=== PATIENT | female | born 2000 | race Caucasian/White ===

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

== ENCOUNTER 2021-06-10 10:48 | Outpatient (CLI) | payer BC ==
[2021-06-10 11:26] VITALS: BP 121/72; PULSE 76; RESP 18; TEMP 97.6
--- NOTE | 2021-06-19 13:22 | P.MSEPDOC ---
Presenting Problems - Arrival Data Date of Arrival on Unit: 06/10/21 Time of Arrival on Unit: 10:48 Mode of Transport: Ambulatory - Complaint OB-Reason for Admission/Chief Complaint: Other Comment: dizziness/lightheadedness and occassional headache x2 days Medical History - Information : 1 Para: 0 Term: 0 : 0 Abortions: Spontaneous or Elective: 0 Number of Living Children: 0 - Gestational Age Gestational Age by NICHO (wks/days): 25 Weeks and 2 Days Review of Systems - Review of Systems Constitutional: No problems Breast: No problems ENT: No problems Cardiovascular: No problems Respiratory: No problems Gastrointestinal: No problems Genitourinary: No problems Musculoskeletal: No problems Neurological: Dizziness Skin: No problems, Rash Comment: rash on legs/thighs that pt is taking prednisone for. Vital Signs - Temperature Temperature: 97.6 F Temperature Source: Temporal Artery Scan - Pulse Right Pulse Oximetery Pulse Rate: 76 Pulse Assessment Method: Pulse Oximetry - Respirations Respiratory Rate: 18 Oxygen Delivery Method: Room Air O2 Sat by Pulse Oximetry: 98 - Blood Pressure Right Arm Blood Pressure: 121/72 Blood Pressure Mean: 88 Blood Pressure Source: Automatic Cuff Medical Screen Scoring - Assessment - Baby A Baseline FHR: 150 Heart Rate - NICHD Category: Category I (Normal) Physician Notification - Physician Notified Physician Notified Date: 06/10/21 Physician Notified Time: 11:15 Physician: Jonh Arias Order Received: Yes (discharge with instructions to f/u next week in office if sx continue) Maternal Triage Index - Maternal Triage Index Presenting for scheduled procedure w/no complaint: No - Stat/Priority 1 Stat Priority 1: No - Urgent/Priority 2 Urgent Priority 2: No - Prompt/Priority 3 Prompt Priority 3: No - Non-Urgent/Priority 4 Non-Urgent Priority 4: Yes Criteria Met for Priority 4: dizziness/lightheadedness/h/a x 2 days Disposition - Disposition OB Disposition: Discharge to home Discharge Date: 06/10/21 Discharge Time: 11:20 I agree with the RN Medical Screening Exam: Yes Case reviewed; plan agreed upon as documented in EMR&OBIX.: Yes Diagnosis: RELATED CONDITIONS, UNSPECIFIED, SECOND TRIMESTER
== END 2021-06-10 11:20 | disposition home or self-care (01) ==
LOC: FBPOP 10:48
PROVIDERS: ATTEND Obstetrics & Gynecology Obstetrics
DX: O26.892 Other specified pregnancy related conditions, second trimester (principal); R42 Dizziness and giddiness; R51.9 Headache, unspecified; Z3A.25 25 weeks gestation of pregnancy; Z88.1 Allergy status to other antibiotic agents
CPT/HCPCS: 99213

== ENCOUNTER 2021-07-01 15:15 | Outpatient (CLI) | payer BC ==
[2021-07-01 21:46] VITALS: BP 114/71; PULSE 80; RESP 16; TEMP 97.5
--- NOTE | 2021-07-02 11:03 | P.MSEPDOC ---
Presenting Problems - Arrival Data Date of Arrival on Unit: 07/01/21 Time of Arrival on Unit: 15:20 Mode of Transport: Ambulatory - Complaint OB-Reason for Admission/Chief Complaint: Decreased Movement, NST Comment: doing kick counts didnt feel baby moving Medical History - Information : 1 Para: 0 Term: 0 : 0 Abortions: Spontaneous or Elective: 0 Number of Living Children: 0 - Gestational Age Gestational Age by NICHO (wks/days): 28 Weeks and 2 Days Review of Systems - Review of Systems Constitutional: No problems Breast: No problems ENT: No problems Cardiovascular: No problems Respiratory: No problems Gastrointestinal: No problems Genitourinary: No problems Musculoskeletal: No problems Neurological: No problems Skin: No problems Vital Signs - Temperature Temperature: 97.5 F Temperature Source: Temporal Artery Scan - Pulse Right Radial Pulse Rate: 80 Pulse Assessment Method: Automatic Cuff - Respirations Respiratory Rate: 16 Oxygen Delivery Method: Room Air - Blood Pressure Right Arm Blood Pressure: 114/71 Blood Pressure Mean: 85 Blood Pressure Source: Automatic Cuff Medical Screen Scoring - Cervical Exam Dilation (cm): 0 - Assessment - Baby A Baseline FHR: 145 Heart Rate - NICHD Category: Category I (Normal) NST: Reactive Physician Notification - Physician Notified Physician Notified Date: 07/01/21 Physician Notified Time: 16:00 Physician: Jonh Arias Order Received: Yes (nst.) Maternal Triage Index - Non-Urgent/Priority 4 Non-Urgent Priority 4: Yes Criteria Met for Priority 4: not feeling baby move after 2 hour kick count Disposition - Disposition OB Disposition: Discharge to home, Written follow up instructions reviewed Discharge Date: 07/01/21 Discharge Time: 16:30 I agree with the RN Medical Screening Exam: Yes Physician's MSE Comment: I have neither seen nor examined the patient. Case reviewed; plan agreed upon as documented in EMR&OBIX.: Yes Diagnosis: RELATED CONDITIONS, UNSPECIFIED, THIRD TRIMESTER
== END 2021-07-01 16:15 | disposition home or self-care (01) ==
LOC: FBPOP 15:15
PROVIDERS: ATTEND Obstetrics & Gynecology
DX: O36.8130 Decreased fetal movements, third trimester, not applicable or unspecified (principal); Z3A.28 28 weeks gestation of pregnancy
CPT/HCPCS: 59025; 99213

== ENCOUNTER 2021-08-16 18:00 | Outpatient (CLI) | payer BC ==
[2021-08-16 19:07] LABS: Appearance,Urine Cloudy (Clear); Bacteria,Urine Rare /hpf; Bilirubin,Urine Negative (Negative); Blood,Urine Negative (Negative); Calcium Oxalate Crystals,Urine Occasional /hpf; Color,Urine Yellow; Glucose,Urine (UA) Negative (Negative); Hyaline Casts,Urine 1 /lpf (0-2); Ketones,Urine Trace (Negative); Leukocyte Esterase,Urine Trace (Negative); Mucus,Urine Moderate /hpf; Nitrite,Urine Negative (Negative); Protein,Urine Trace (Negative); RBC,Urine 1 /hpf (0-5); Specific Gravity,Urine 1.023 (1.001-1.035); Squamous Epithelial Cell,Urine 7 /hpf (0-4); Urobilinogen,Urine <2.0 mg/dL (<2.0); WBC,Urine 4 /hpf (0-5)
[2021-08-17 00:57] VITALS: BP 128/84; PULSE 88; RESP 16; TEMP 97.3
--- NOTE | 2021-09-19 17:02 | P.MSEPDOC ---
Presenting Problems - Arrival Data Date of Arrival on Unit: 08/17/21 Time of Arrival on Unit: 18:00 Mode of Transport: Ambulatory - Complaint OB-Reason for Admission/Chief Complaint: Pain Comment: Patient states she has back pain 4/10. Medical History - Information : 2 Para: 0 Term: 0 : 0 Abortions: Spontaneous or Elective: 1 Number of Living Children: 0 - Gestational Age Gestational Age by NICHO (wks/days): 33 Weeks and 5 Days - History Comment: Patient denies any complications with this . Review of Systems - Review of Systems Constitutional: No problems Breast: No problems ENT: No problems Cardiovascular: No problems Respiratory: No problems Gastrointestinal: No problems Genitourinary: No problems Musculoskeletal: No problems Neurological: No problems Skin: No problems Vital Signs - Temperature Temperature: 97.3 F Temperature Source: Temporal Artery Scan - Pulse Pulse Oximetery Pulse Rate: 88 Pulse Assessment Method: Automatic Cuff - Respirations Respiratory Rate: 16 Oxygen Delivery Method: Room Air O2 Sat by Pulse Oximetry: 99 - Blood Pressure Right Arm Blood Pressure: 128/84 Blood Pressure Mean: 98 Blood Pressure Source: Automatic Cuff Medical Screen Scoring - Cervical Exam Dilation (cm): 1 Effacement (%): 0 Membranes: Intact - Assessment - Baby A Baseline FHR: 130 Heart Rate - NICHD Category: Category I (Normal) NST: Reactive Physician Notification - Physician Notified Physician Notified Date: 08/16/21 Physician Notified Time: 19:40 Physician: Jonh Arias Order Received: Yes - Notification Comment Comment: Spoke with Dr. Arias via telephone, patient is to follow up with next appointment and to stay hydrated. Maternal Triage Index - Non-Urgent/Priority 4 Non-Urgent Priority 4: Yes Criteria Met for Priority 4: Patient states she is having lower back pain a 4/10 and pelvic presure. Disposition - Disposition OB Disposition: Physician follow up in office, Discharge to home I agree with the RN Medical Screening Exam: Yes Physician's MSE Comment: I have neither seen nor examined the patient. Case reviewed; plan agreed upon as documented in EMR&OBIX.: Yes Diagnosis: RELATED CONDITIONS, UNSPECIFIED, THIRD TRIMESTER
== END 2021-08-16 19:40 | disposition home or self-care (01) ==
LOC: FBPOP 18:00
PROVIDERS: ATTEND Obstetrics & Gynecology
DX: O26.893 Other specified pregnancy related conditions, third trimester (principal); M54.9 Dorsalgia, unspecified; Z3A.33 33 weeks gestation of pregnancy; Z88.1 Allergy status to other antibiotic agents
CPT/HCPCS: 59025; 81001; 82731; 99213

== ENCOUNTER 2021-08-30 15:52 | Inpatient (IN) | payer BC, OTHER ==
[2021-08-30 17:11] LABS: Basophils % (A) 0 %; Eosinophils # (A) 0.2 k/uL (0-0.7); Eosinophils % (A) 2 %; HGB 13.9 gm/dL (11.4-16.0); Lymphocytes # (A) 2.1 k/uL (1.0-4.8); Lymphocytes % (A) 21 %; MCH 32.7 pg (25.0-35.0); MCHC 34.8 g/dL (31.0-37.0); Mean Platelet Volume 9.4; Monocytes # (A) 0.3 k/uL (0-1.0); Monocytes % (A) 3 %; Neutrophils # (A) 7.3 k/uL (1.3-7.7); Neutrophils % (A) 73 %; Platelet Count 181 k/uL (150-450); Poikilocytosis Slight; RBC 4.26 m/uL (3.80-5.40)
[2021-08-30] MEDS ORDERED: LABETALOL 100 MG TAB PO ONE (17:12)
[2021-08-30 17:21] LABS: ALT 13 U/L (4-34); AST 33 U/L (14-36); African American GFR (CKD) >90 (>60 ml/min/1.73 sqM); Blood Urea Nitrogen 7 mg/dL (7-17); LDH 630 U/L (313-618); Non-African American GFR(CKD) >90 (>60 ml/min/1.73 sqM); Uric Acid 5.1 mg/dL (3.7-7.4)
[2021-08-30 17:24] LABS: Appearance,Urine Cloudy (Clear); Bacteria,Urine Rare /hpf; Bilirubin,Urine Negative (Negative); Blood,Urine Negative (Negative); Color,Urine Yellow; Glucose,Urine (UA) Negative (Negative); Hyaline Casts,Urine 1 /lpf (0-2); Ketones,Urine Negative (Negative); Leukocyte Esterase,Urine Large (Negative); Nitrite,Urine Negative (Negative); PH, Urine 6.5 (5.0-8.0); Protein,Urine Negative (Negative); RBC,Urine 2 /hpf (0-5); Specific Gravity,Urine 1.011 (1.001-1.035); Squamous Epithelial Cell,Urine 10 /hpf (0-4); Urobilinogen,Urine <2.0 mg/dL (<2.0); WBC,Urine 8 /hpf (0-5)
[2021-08-30] MEDS: BETAMET ACET-BETAMETH SOD PHOS 6 MG/ML MDV IM SCH (17:24)
[2021-08-30 17:37] LABS: Creatinine,Urine Random 89.8 mg/dL; Protein/Creatinine Ratio,Urine 0.167
[2021-08-30] MEDS ORDERED: hydrALAZINE HCL 20 MG/ML 1 ML VIAL IVP STA ×2 (18:55→19:00)
[2021-08-30] MEDS ORDERED: DINOPROSTONE 10 MG INSERT.ER VAGINAL ONE (19:15)
[2021-08-30] MEDS: LACTATED RINGERS 1,000 ML IV SCH (19:27)
[2021-08-30] MEDS ORDERED: hydrALAZINE HCL 20 MG/ML 1 ML VIAL IVP PRN (21:03)
[2021-08-31] MEDS ORDERED: BETAMET ACET-BETAMETH SOD PHOS 6 MG/ML MDV IM SCH (05:24)
[2021-08-31] MEDS ORDERED: OXYTOCIN 30 UNITS/500 ML NS 30 UNIT in SALINE 1 500ML.BAG IV SCH ×2 (05:30→13:45)
[2021-08-31] MEDS ORDERED: OXYTOCIN 10 UNIT/ML 1 ML VIAL IM PRN (05:30)
[2021-08-31] MEDS ORDERED: CARBOPROST TROMETHAMINE 250 MCG/ML 1 ML AMP IM PRN (05:30)
[2021-08-31] MEDS ORDERED: LIDOCAINE 0.5% (PF) 5 MG/ML (50 ML SDV) SQ PRN (05:30)
[2021-08-31] MEDS ORDERED: METHYLERGONOVINE 0.2 MG/ML 1 ML AMP IM PRN (05:30)
[2021-08-31] MEDS ORDERED: TERBUTALINE 1 MG/ML VIAL SQ PRN (05:30)
[2021-08-31] MEDS ORDERED: BUTORPHANOL 1 MG/ML 1 ML VIAL IV PRN (05:32)
[2021-08-31 06:31] LABS: Basophils % (A) 0 %; Eosinophils % (A) 0 %; HCT 36.2 % (34.0-46.0); HGB 12.7 gm/dL (11.4-16.0); Lymphocytes # (A) 0.8 k/uL (1.0-4.8); Lymphocytes % (A) 9 %; MCH 33.1 pg (25.0-35.0); MCV 94.6 fL (80.0-100.0); Mean Platelet Volume 9.3; Monocytes # (A) 0.1 k/uL (0-1.0); Monocytes % (A) 2 %; Neutrophils # (A) 7.9 k/uL (1.3-7.7); Neutrophils % (A) 89 %; Platelet Count 167 k/uL (150-450); Poikilocytosis Slight; RBC 3.82 m/uL (3.80-5.40); RDW 13.1 % (11.5-15.5); WBC 8.9 k/uL (3.8-10.6)
[2021-08-31 06:35] LABS: ALT 13 U/L (4-34); AST 21 U/L (14-36); African American GFR (CKD) >90 (>60 ml/min/1.73 sqM); Blood Urea Nitrogen 5 mg/dL (7-17); LDH 434 U/L (313-618); Non-African American GFR(CKD) >90 (>60 ml/min/1.73 sqM); Uric Acid 6.1 mg/dL (3.7-7.4)
[2021-08-31 07:27] LABS: Appearance,Urine Clear (Clear); Bilirubin,Urine Negative (Negative); Blood,Urine Negative (Negative); Color,Urine Light Yellow; Glucose,Urine (UA) Negative (Negative); Ketones,Urine 3+ (Negative); Leukocyte Esterase,Urine Negative (Negative); Nitrite,Urine Negative (Negative); Protein,Urine Negative (Negative); Specific Gravity,Urine 1.009 (1.001-1.035); Urobilinogen,Urine <2.0 mg/dL (<2.0)
[2021-08-31 07:45] LABS: Creatinine,Urine Random 47.2 mg/dL; Protein/Creatinine Ratio,Urine 0.212
[2021-08-31] MEDS: LACTATED RINGERS 1,000 ML IV SCH ×3 (08:00→10:54)
[2021-08-31] MEDS ORDERED: ROPIVACAINE 100 MG, fentaNYL (PF). 200 MCG in SODIUM CHLORIDE 0.9% 76 ML EPIDURAL ONE (10:35)
[2021-08-31] MEDS: PRENATAL VIT-IRON-FOLIC ACID 1 EACH CAP PO SCH (10:53)
[2021-08-31] MEDS ORDERED: BENZOCAINE/MENTHOL SPRAY 1 GM/SPRAY AEROSOL TOPICAL PRN (13:39)
[2021-08-31] MEDS ORDERED: HYDROCORTISONE 2.5% RECTAL CREAM 30 GM TUBE RECTAL PRN (13:39)
[2021-08-31] MEDS ORDERED: diphenhydrAMINE 25 MG CAP PO PRN (13:39)
[2021-08-31] MEDS ORDERED: ACETAMINOPHEN TAB 325 MG TAB PO PRN (13:39)
[2021-08-31] MEDS ORDERED: SIMETHICONE 80 MG CHEWABLE PO PRN (13:39)
[2021-08-31] MEDS ORDERED: diphenhydrAMINE 50 MG/ML 1 ML VIAL IVP PRN ×2 (13:39)
[2021-08-31] MEDS ORDERED: LANOLIN CREAM 5 GM TUBE TOPICAL PRN (13:39)
[2021-08-31] MEDS ORDERED: ZOLPIDEM 5 MG TAB PO PRN (13:39)
[2021-08-31] MEDS ORDERED: diphenhydrAMINE 50 MG CAP PO PRN (13:39)
--- NOTE | 2021-08-31 13:39 | P.PROBDLV ---
Vaginal Delivery Note - . Vaginal Delivery Note: This is a 21-year-old 2 para 0010 at 37 and 0/7 weeks that presents to labor and delivery with complaints of not feeling well, for full details on this patient please see the dictated history and physical. Patient was admitted secondary to gestational hypertension last evening and a Cervidil was placed for induction of labor. Patient did well overnight. Patient did receive hydralazine 1 for elevated blood pressures continued blood pressures 140s over 90s overnight and this morning. Cervidil was removed and Pitocin augmentation of labor was begun. Patient underwent amniotomy and clear fluid was noted. Patient quickly became uncomfortable and requested epidural placement. Epidural was placed without difficulty by the anesthesia department. Patient made progress to the morning eventually becoming complete and began pushing. Patient was placed in a modified lithotomy position with excellent maternal effort patient did bring the down to a , the anterior/posterior shoulder was delivered without difficulty, loose nuchal cord was appreciated and delivered through. The was then placed on the maternal abdomen, after a two-minute delayed the umbilical cord was doubly clamped and cut. The placenta was then delivered spontaneously intact with a three-vessel cord being noted. The uterus is noted be firm and below the umbilicus after delivery of the placenta. On inspection the patient's vaginal vault a small first-degree left hymenal tear was appreciated a [id number] suture of 3-0 Vicryl was used to obtain hemostasis. Estimated blood loss 100 mL. Patient and tolerated delivery well and are resting comfortably.
--- NOTE | 2021-08-31 13:41 | P.HPOB ---
History of Present Illness H&P Date: 08/30/21 Chief Complaint: IUP at 36-6/7 weeks, gestational hypertension This is a 21-year-old 2 para 0010 at 36-6/7 weeks that presents to labor and delivery with complaints of contractions. On initial evaluation elevated blood pressures were noted. 140s to 160s over 90s to 100s. Preeclampsia labs were obtained and normal in nature. Protein creatinine ratio was noted be 0.1. Patient does state she has a slight headache. She states she has had minimal to eat or drink today. She has just felt "off". Patient notes good movement, no loss of fluid or vaginal bleed. Patient has been receiving routine care with myself which is been essentially uncomplicated, no elevated blood pressures were noted just far in . Patient did have a positive MRSA boil on her thigh treated with antibiotics this . Review of Systems Constitutional: Reports fatigue, Denies chills, Denies fever Ears, nose, mouth and throat: Reports headache Cardiovascular: Denies leg edema Respiratory: Denies dyspnea Gastrointestinal: Denies constipation, Denies diarrhea, Denies nausea, Denies vomiting Genitourinary: Reports Past Medical History Past Medical History: No Reported History History of Any Multi-Drug Resistant Organisms: MRSA Date of last positivie culture/infection: 06/29/21 MDRO Source:: MRSA right GROIN, finished abx a couple months ago Past Surgical History: No Surgical Hx Reported Additional Past Surgical History / Comment(s): Tubes in her ears. Past Anesthesia/Blood Transfusion Reactions: No Reported Reaction Past Psychological History: Anxiety Smoking Status: Never smoker Past Alcohol Use History: None Reported Past Drug Use History: None Reported - Past Family History Mother Family Medical History: No Reported History Medications and Allergies Home Medications Medication Instructions Recorded Confirmed Type Pnv,Calcium 72/Iron/Folic Acid 1 tab PO DAILY 07/01/21 08/30/21 History [ Plus Tablet] Allergies Allergy/AdvReac Type Severity Reaction Status Date / Time amoxicillin Allergy Rash/Hives Verified 08/30/21 16:27 Exam Osteopathic Statement: *. No significant issues noted on an osteopathic structural exam other than those noted in the History and Physical/Consult. Vital Signs Temp Pulse Resp BP 08/30/21 18:04 98.1 F 74 16 146/91 08/30/21 18:00 97.7 F 91 16 161/107 08/30/21 17:01 85 16 156/102 08/30/21 16:51 85 16 155/101 08/30/21 16:42 96 16 162/106 08/30/21 16:31 90 16 152/98 08/30/21 16:22 100 16 142/97 08/30/21 16:11 74 16 160/99 08/30/21 15:58 98.1 F 74 16 146/91 Intake and Output 08/30/21 08/30/21 08/30/21 06:59 14:59 22:59 Other: Weight 73.482 kg Targeted physical exam is performed in general this a well-nourished well- developed female in no acute distress, breathing is noted to be nonlabored, heart has a regular rate and rhythm, abdomen is gravid and nontender, heart tones are category 1, she is amanda irregularly, on cervical exam she is 1-2/60/-3 station, posterior and soft. Results Result Diagrams: 08/30/21 17:00 08/30/21 17:00 Abnormal Lab Results - Last 24 Hours (Table) 08/30/21 08/30/21 Range/Units 17:00 17:00 Lactate Dehydrogenase 630 H (313-618) U/L Urine Appearance Cloudy H (Clear) Ur Leukocyte Esterase Large H (Negative) Urine WBC 8 H (0-5) /hpf Ur Squamous Epith Cells 10 H (0-4) /hpf Urine Bacteria Rare H (None) /hpf Assessment and Plan (1) 36 to 37 weeks gestation of Current Visit: Yes Status: Acute Code(s): OVI2980 - SNOMED Code(s): 760152276 (2) Gestational HTN Current Visit: Yes Status: Acute Code(s): O13.9 - GESTATIONAL HTN W/O SIGNIFICANT PROTEINURIA, UNSP TRIMESTER SNOMED Code(s): 99615251 Plan: 21-year-old 2 para 0010 at 36-6/7 weeks that presents with elevated blood pressure, negative preeclampsia labs and urine protein creatinine ratio. Blood pressures 140s to 170s over 90s to 100. No change in blood pressures n oted after 100 mg of labetalol was given by mouth, therefore 10 mg of IV hydralazine will be given next. Plan induction of labor with Cervidil. Patient is counseled on plan of care, questions are answered.
[2021-08-31] MEDS: IBUPROFEN 600 MG TAB PO SCH (14:45)
[2021-08-31] MEDS: SENNOSIDES-DOCUSATE SODIUM 1 EACH TAB PO SCH (20:25)
[2021-09-01] MEDS: LACTATED RINGERS 1,000 ML IV SCH ×2 (04:45→04:46)
[2021-09-01] MEDS: IBUPROFEN 600 MG TAB PO SCH ×5 (04:45→16:19)
[2021-09-01] MEDS: BETAMET ACET-BETAMETH SOD PHOS 6 MG/ML MDV IM SCH (04:46)
--- NOTE | 2021-09-01 08:41 | P.PNOBGVD ---
Subjective - Subjective Principal diagnosis: PPD 1 Interval history: Patient is doing well . She is ambulating and voiding without difficulty. Her blood pressures have been controlled 140s over 90s. She denies any signs or symptoms of preeclampsia. She is proceeding without difficulty. She states her lochia is minimal. Patient reports: Reports appetite normal, Reports voiding normally, Reports pain well controlled, Reports ambulating normally [place]: doing well, nursing well Objective - Latest Vital Signs Latest vital signs: Vital Signs Temp Pulse Resp BP 09/01/21 04:00 86 16 148/90 09/01/21 00:00 97.6 F 82 16 135/92 08/31/21 20:00 98.3 F 85 16 148/94 08/31/21 15:34 97.6 F 76 17 135/77 08/31/21 15:01 101 H 16 142/79 08/31/21 14:34 90 17 135/77 08/31/21 14:19 97 17 136/75 08/31/21 14:04 109 H 17 136/78 08/31/21 13:49 111 H 17 141/84 08/31/21 13:34 99.6 F 122 H 17 140/84 Intake and Output 08/31/21 09/01/21 09/01/21 22:59 06:59 14:59 Other: # Voids 1 1 - Exam Extremities: Absent: edema Abdomen: Present: normal appearance, soft Uterus: Present: normal, firm Assessment and Plan (1) 36 to 37 weeks gestation of Current Visit: Yes Status: Acute Code(s): OKZ0771 - SNOMED Code(s): 780538902 (2) Gestational HTN Current Visit: Yes Status: Acute Code(s): O13.9 - GESTATIONAL HTN W/O SIGNIFICANT PROTEINURIA, UNSP TRIMESTER SNOMED Code(s): 87158669 (3) Status post vaginal delivery Current Visit: Yes Status: Acute Code(s): [id number] - SNOMED Code(s): 690545467 (4) Obstetric vaginal laceration with first degree perineal laceration Current Visit: Yes Status: Acute Code(s): O70.0 - FIRST DEGREE PERINEAL LACERATION DURING DELIVERY SNOMED Code(s): 249776287 Plan: 21-year-old 1 now para 1 status post normal spontaneous vaginal delivery. Patient is doing well. Blood pressures have been stable 140s over 90s. Patient is without signs or symptoms of preeclampsia. Will monitor blood pressures today consider labetalol if necessary. Patient is aware of plan and all questions are answered. Anticipate discharge home tomorrow.
[2021-09-01] MEDS: LABETALOL 100 MG TAB PO SCH ×3 (09:41→20:49)
[2021-09-01] MEDS: SENNOSIDES-DOCUSATE SODIUM 1 EACH TAB PO SCH ×2 (18:08→19:19)
[2021-09-01] MEDS: PRENATAL VIT-IRON-FOLIC ACID 1 EACH CAP PO SCH (18:08)
[2021-09-02] MEDS: IBUPROFEN 600 MG TAB PO SCH ×3 (04:10→09:13)
[2021-09-02 08:57] VITALS: BP 133/72; PULSE 76; RESP 18; TEMP 98.6
[2021-09-02] MEDS: LABETALOL 100 MG TAB PO SCH (09:11)
[2021-09-02] MEDS: PRENATAL VIT-IRON-FOLIC ACID 1 EACH CAP PO SCH (09:12)
[2021-09-02] MEDS: SENNOSIDES-DOCUSATE SODIUM 1 EACH TAB PO SCH (09:12)
--- NOTE | 2021-09-02 09:25 | P.DS ---
Providers Date of admission: 08/30/21 17:30 Expected date of discharge: 09/02/21 Attending physician: Aneta Franz Primary care physician: Stated None - Discharge Diagnosis(es) (1) 36 to 37 weeks gestation of Current Visit: Yes Status: Acute (2) Gestational HTN Current Visit: Yes Status: Acute (3) Status post vaginal delivery Current Visit: Yes Status: Acute (4) Obstetric vaginal laceration with first degree perineal laceration Current Visit: Yes Status: Acute Hospital Course: This is a 21-year-old 2 para 1011 that presented to labor and delivery at 36-6/7 weeks with noted elevated pressures, feeling off. Patient was seen the day before with normal blood pressures. Upon presentation to labor and delivery elevated blood pressures were noted, normal preeclampsia labs were appreciated. Patient was counseled on need for delivery secondary to significantly elevated blood pressures and diagnosis of gestational hypertens ion. Cervidil was placed that evening. Patient made minimal change overnight, amniotomy was performed in the morning and Pitocin augmentation of labor was begun. Patient quickly became uncomfortable and requested epidural placement. Epidural was placed without difficulty by the anesthesia department. Patient progressed to complete began pushing and had a normal spontaneous vaginal delivery of a viable female at 1320, weight of 6 lbs. 12 oz., Apgars of 9 and 9 at one and 5 minutes respectively. Patient's course has been uneventful. Her blood pressures have been controlled 130s to 140s over 80s to 90s. Patient denies any signs or symptoms of preeclampsia. Patient states her lochia is moderate. She is breast-feeding with some difficulty and is working with . Patient Condition at Discharge: Good Plan - Discharge Summary New Discharge Prescriptions: No Action Pnv,Calcium 72/Iron/Folic Acid [ Plus Tablet] 1 tab PO DAILY Discharge Medication List Pnv,Calcium 72/Iron/Folic Acid [ Plus Tablet] 1 tab PO DAILY 07/01/21 [History] Follow up Appointment(s)/Referral(s): Aneta Franz DO [Doctor of Osteopathic Medicine] - (sunday for BP check) Patient Instructions/Handouts: Vaginal Delivery (DC), Vaginal Delivery (GEN) Discharge Disposition: HOME SELF-CARE
== END 2021-09-02 11:46 | disposition home or self-care (01) | DRG 807 ==
LOC: FBPOP 15:52 → 4FBP 17:30
PROVIDERS: ADMIT Obstetrics & Gynecology Obstetrics; ATTEND Obstetrics & Gynecology Obstetrics
PROC: 10E0XZZ Delivery of Products of Conception, External Approach (ICD-10-PCS; principal; 2021-08-31)
PROC: 0HQ9XZZ Repair Perineum Skin, External Approach (ICD-10-PCS; 2021-08-31)
PROC: 3E0P7VZ Introduction of Hormone into Female Reproductive, Via Natural or Artificial Opening (ICD-10-PCS; 2021-08-31)
PROC: 3E033VJ Introduction of Other Hormone into Peripheral Vein, Percutaneous Approach (ICD-10-PCS; 2021-08-31)
PROC: 10907ZC Drainage of Amniotic Fluid, Therapeutic from Products of Conception, Via Natural or Artificial Opening (ICD-10-PCS; 2021-08-31)
DX: O13.4 Gestational [pregnancy-induced] hypertension without significant proteinuria, complicating childbirth (principal); Z37.0 Single live birth; O69.81X0 Labor and delivery complicated by cord around neck, without compression, not applicable or unspecified; F41.9 Anxiety disorder, unspecified; O70.0 First degree perineal laceration during delivery; O99.344 Other mental disorders complicating childbirth; Z3A.37 37 weeks gestation of pregnancy; Z86.14 Personal history of Methicillin resistant Staphylococcus aureus infection; Z88.1 Allergy status to other antibiotic agents
CPT/HCPCS: 59025; 81001; 81003; 82565; 82570; 83615; 84156; 84450; 84460; 84520; 84550; 85025; 86850; 86900; 86901; 88307; 99215

== ENCOUNTER 2023-11-22 19:35 | Outpatient (CLI) | payer OTHER ==
[2023-11-22 21:04] VITALS: BP 129/77; PULSE 90; RESP 16; TEMP 97.5
--- NOTE | 2023-11-23 11:05 | P.MSEPDOC ---
Presenting Problems - Arrival Data Date of Arrival on Unit: 11/22/23 Time of Arrival on Unit: 19:35 Mode of Transport: Ambulatory - Complaint OB-Reason for Admission/Chief Complaint: Headache, Dizziness Medical History - Information : 3 Para: 1 Term: 1 : 0 Abortions: Spontaneous or Elective: 1 Number of Living Children: 1 - Gestational Age Gestational Age by NICHO (wks/days): 14 Weeks and 1 Days Review of Systems - Review of Systems Constitutional: No problems Breast: No problems ENT: No problems Cardiovascular: No problems Respiratory: No problems Gastrointestinal: No problems Genitourinary: No problems Musculoskeletal: No problems Neurological: No problems Skin: No problems Vital Signs - Temperature Temperature: 97.5 F Temperature Source: Oral - Pulse Right Brachial Pulse Rate: 90 Pulse Assessment Method: Automatic Cuff - Respirations Respiratory Rate: 16 Oxygen Delivery Method: Room Air O2 Sat by Pulse Oximetry: 100 - Blood Pressure Right Arm Blood Pressure: 129/77 Blood Pressure Mean: 94 Blood Pressure Source: Automatic Cuff Medical Screen Scoring - Assessment - Baby A Baseline FHR: 160 Heart Rate - NICHD Category: Category I (Normal) Physician Notification - Physician Notified Physician Notified Date: 11/22/23 Physician Notified Time: 20:12 Physician: Jonh Arias Order Received: Yes - Notification Comment Comment: Dr. Arias called and given report on pt. Pt c/o of h/a, groggy, dizzy. Pt denies taking Tylenol. VS WNL. Pt Hx. FHTs dopplered 150-165bpm. Pt reports appointment with Dr. Franz 11/27. Orders received to d/c pt to home Maternal Triage Index - Non-Urgent/Priority 4 Non-Urgent Priority 4: Yes Criteria Met for Priority 4: Pt c/o of h/a, groggy feeling, high blood pressure reading from cuff at home. Pt 14 weeks and 1 day. Disposition - Disposition OB Disposition: Discharge to home Discharge Date: 11/22/23 Discharge Time: 20:23 I agree with the RN Medical Screening Exam: Yes Physician's MSE Comment: I have neither seen nor examined the patient. Case reviewed; plan agreed upon as documented in EMR&OBIX.: Yes Diagnosis: RELATED CONDITIONS, UNSPECIFIED, SECOND TRIMESTER
== END 2023-11-22 20:23 | disposition home or self-care (01) ==
LOC: FBPOP 19:35
PROVIDERS: ATTEND Obstetrics & Gynecology
DX: O99.891 Other specified diseases and conditions complicating pregnancy (principal); R51.9 Headache, unspecified; R42 Dizziness and giddiness; Z3A.14 14 weeks gestation of pregnancy; Z88.0 Allergy status to penicillin
CPT/HCPCS: 99215

== ENCOUNTER 2024-03-05 17:55 | Outpatient (CLI) | payer OTHER ==
[2024-03-05 19:15] VITALS: BP 118/76; PULSE 88; RESP 16; TEMP 98
--- NOTE | 2024-03-30 10:41 | P.MSEPDOC ---
Presenting Problems - Arrival Data Date of Arrival on Unit: 03/05/24 Time of Arrival on Unit: 17:56 Mode of Transport: Ambulatory - Complaint OB-Reason for Admission/Chief Complaint: Other Comment: pt arrived to triage at 29 weeks c/o pressure in lower vaginal area and lower abd area. pt denies any bleeding or leaking of fluid. Medical History - Information : 3 Para: 1 Term: 1 : 0 Abortions: Spontaneous or Elective: 1 Number of Living Children: 1 - Gestational Age Gestational Age by NICHO (wks/days): 29 Weeks and 0 Days Review of Systems - Review of Systems Constitutional: No problems Breast: No problems ENT: No problems Cardiovascular: No problems Respiratory: No problems Gastrointestinal: No problems Genitourinary: No problems Musculoskeletal: No problems Neurological: No problems Skin: No problems Vital Signs - Temperature Temperature: 98 F Temperature Source: Oral - Pulse Right Brachial Pulse Rate: 88 Pulse Assessment Method: Automatic Cuff - Respirations Respiratory Rate: 16 Oxygen Delivery Method: Room Air - Blood Pressure Right Arm Blood Pressure: 118/76 Blood Pressure Mean: 90 Blood Pressure Source: Automatic Cuff Medical Screen Scoring - Cervical Exam Dilation (cm): 0 Membranes: Intact - Uterine Contractions Frequency From (mins): 0 Frequency To (mins): 0 Intensity: Absent Resting: Soft to palpation - Assessment - Baby A Baseline FHR: 130 Heart Rate - NICHD Category: Category I (Normal) NST: Reactive Physician Notification - Physician Notified Physician Notified Date: 03/05/24 Physician Notified Time: 18:50 Physician: dr morales New Order Received: Yes - Notification Comment Comment: may discharge to home with instructions Maternal Triage Index - Non-Urgent/Priority 4 Non-Urgent Priority 4: Yes Criteria Met for Priority 4: 29 week arrived to triage c/o pressure in lower vaginal area and lower abd area. abd soft on palpation no bleeding noted. v/s stable reactive NST cervix closed soft long and posterior. pt discharged to home with instructions Disposition - Disposition OB Disposition: Discharge to home Discharge Date: 03/05/24 Discharge Time: 18:54 I agree with the RN Medical Screening Exam: Yes Physician's MSE Comment: Neither seen nor examined the patient. Case reviewed; plan agreed upon as documented in EMR&OBIX.: Yes Diagnosis: RELATED CONDITIONS, UNSPECIFIED, THIRD TRIMESTER
== END 2024-03-05 18:54 | disposition home or self-care (01) ==
LOC: FBPOP 17:55
PROVIDERS: ATTEND Obstetrics & Gynecology
DX: O26.893 Other specified pregnancy related conditions, third trimester (principal); R10.30 Lower abdominal pain, unspecified; R10.2 Pelvic and perineal pain; Z3A.29 29 weeks gestation of pregnancy; Z88.0 Allergy status to penicillin
CPT/HCPCS: 59025; 99213

== ENCOUNTER 2024-03-13 19:08 | Outpatient (CLI) | payer OTHER ==
[2024-03-13 20:00] LABS: Basophils % (A) 0 %; Eosinophils # (A) 0.1 k/uL (0-0.7); Eosinophils % (A) 1 %; HCT 31.7 % (34.0-46.0); HGB 11.1 gm/dL (11.4-16.0); Lymphocytes # (A) 1.7 k/uL (1.0-4.8); Lymphocytes % (A) 19 %; MCH 32.4 pg (25.0-35.0); MCHC 34.8 g/dL (31.0-37.0); Mean Platelet Volume 9.3; Monocytes # (A) 0.4 k/uL (0-1.0); Monocytes % (A) 4 %; Neutrophils # (A) 6.9 k/uL (1.3-7.7); Neutrophils % (A) 75 %; Platelet Count 141 k/uL (150-450); RBC 3.41 m/uL (3.80-5.40); RDW 13.4 % (11.5-15.5); WBC 9.2 k/uL (3.8-10.6)
[2024-03-13 20:03] LABS: Appearance,Urine Clear (Clear); Bilirubin,Urine Negative (Negative); Blood,Urine Negative (Negative); Color,Urine Yellow; Glucose,Urine (UA) Negative (Negative); Ketones,Urine Negative (Negative); Leukocyte Esterase,Urine Negative (Negative); Nitrite,Urine Negative (Negative); Protein,Urine Trace (Negative); Specific Gravity,Urine 1.016 (1.001-1.035); Urobilinogen,Urine <2.0 mg/dL (<2.0)
[2024-03-13 20:09] LABS: INR 0.9 (<1.2); Partial Thromboplastin Time 24.5 sec (22.0-30.0); Prothrombin Time 10.1 sec (10.0-12.5)
[2024-03-13 20:17] LABS: ALT 10 U/L (4-34); AST 21 U/L (14-36); African American GFR (CKD) >90 (>60 ml/min/1.73 sqM); Blood Urea Nitrogen 6 mg/dL (7-17); Creatinine,Urine Random 159.7 mg/dL; LDH 196 U/L (120-246); Non-African American GFR(CKD) >90 (>60 ml/min/1.73 sqM); Protein/Creatinine Ratio,Urine 0.088; Uric Acid 3.8 mg/dL (3.7-7.4)
[2024-03-13] MEDS: ACETAMINOPHEN TAB 325 MG TAB PO STA (20:26)
[2024-03-13] MEDS ORDERED: ACETAMINOPHEN TAB 325 MG TAB PO STA (20:29)
[2024-03-13 20:50] VITALS: BP 142/84; PULSE 97; RESP 16; TEMP 97.3
--- NOTE | 2024-03-30 10:56 | P.MSEPDOC ---
Presenting Problems - Arrival Data Date of Arrival on Unit: 03/13/24 Time of Arrival on Unit: 19:08 Mode of Transport: Ambulatory - Complaint OB-Reason for Admission/Chief Complaint: Headache, Dizziness, Other Comment: notified of pt. presen to traige due to symtoms of high BP, pt. states she had high blood pressure her last ,pt. took her BP at 6:30 tonight they were 136/93, and 143/94 pt. stated feeling groggy around 5:30, lightheaded, dizzy, and was seeing spots at home pt. currently not seeing spots at this time, foggy vision, RUQ pain 4/10, 5/10 headache, reflexs are +2 bilat, no edmea, BP 142/84. pt. states she hasbeen drinking lots of water throughout the day, urine collected- dark max color and concentrated about 60cc, cat 1 FHTs, order to send urine and collect PIH labs, if labs come back normal okay to discharge pt. home. Medical History - Information : 3 Para: 1 Term: 1 : 0 Abortions: Spontaneous or Elective: 1 Number of Living Children: 1 - Gestational Age Gestational Age by NICHO (wks/days): 30 Weeks and 1 Days - History Comment: pt. had high bp last Review of Systems - Review of Systems Constitutional: No problems Breast: No problems ENT: No problems Cardiovascular: No problems Respiratory: No problems Gastrointestinal: No problems Genitourinary: No problems Musculoskeletal: No problems Neurological: Dizziness Skin: No problems Vital Signs - Temperature Temperature: 97.3 F Temperature Source: Temporal Artery Scan - Pulse Pulse Oximetery Pulse Rate: 97 Pulse Assessment Method: Automatic Cuff - Respirations Respiratory Rate: 16 Oxygen Delivery Method: Room Air O2 Sat by Pulse Oximetry: 100 - Blood Pressure Right Arm Blood Pressure: 142/84 Blood Pressure Mean: 103 Blood Pressure Source: Automatic Cuff Medical Screen Scoring - Assessment - Baby A Baseline FHR: 150 Heart Rate - NICHD Category: Category I (Normal) NST: Reactive Physician Notification - Physician Notified Physician Notified Date: 03/13/24 Physician Notified Time: 20:20 Physician: Jonh Arias New Order Received: Yes - Notification Comment Comment: labs, BP and FHTs reviewed, headache 6/10 and dizzyness present orders for tylenol and D/C pt. home Maternal Triage Index - Maternal Triage Index Presenting for scheduled procedure w/no complaint: No - Stat/Priority 1 Stat Priority 1: No - Urgent/Priority 2 Urgent Priority 2: Yes Provider Notified: Jonh Arias Provider Notified Time: 19:34 Criteria Met for Priority 2: PIH labs and urine ordered - Prompt/Priority 3 Prompt Priority 3: No - Non-Urgent/Priority 4 Non-Urgent Priority 4: No Disposition - Disposition OB Disposition: Discharge to home Discharge Date: 03/13/24 Discharge Time: 20:39 I agree with the RN Medical Screening Exam: Yes Physician's MSE Comment: I have neither seen nor examined the patient. Case reviewed; plan agreed upon as documented in EMR&OBIX.: Yes Diagnosis: RELATED CONDITIONS, UNSPECIFIED, THIRD TRIMESTER
== END 2024-03-13 20:39 | disposition home or self-care (01) ==
LOC: FBPOP 19:08
PROVIDERS: ATTEND Obstetrics & Gynecology
DX: O26.893 Other specified pregnancy related conditions, third trimester (principal); R51.9 Headache, unspecified; R42 Dizziness and giddiness; R10.11 Right upper quadrant pain; R10.30 Lower abdominal pain, unspecified; Z3A.30 30 weeks gestation of pregnancy; Z88.0 Allergy status to penicillin
CPT/HCPCS: 36415; 59025; 81003; 82565; 82570; 83615; 84156; 84450; 84460; 84520; 84550; 85025; 85384; 85610; 85730; 99215

== ENCOUNTER 2024-04-01 10:45 | Outpatient (CLI) | payer OTHER | END 2024-04-01 12:00 | disposition home or self-care (01) | LOC: FBPOP 10:45 | PROVIDERS: ATTEND Obstetrics & Gynecology Obstetrics | CPT/HCPCS: 59025; 99213 ==

== ENCOUNTER 2024-04-10 13:20 | Outpatient (CLI) | payer OTHER | END 2024-04-10 14:30 | LOC: FBPOP 13:20 | PROVIDERS: ATTEND Obstetrics & Gynecology Obstetrics | CPT/HCPCS: 59025; 99213 ==

== ENCOUNTER 2024-04-15 19:05 | Outpatient (CLI) | payer OTHER | END 2024-04-15 21:15 | LOC: FBPOP 19:05 | PROVIDERS: ATTEND Obstetrics & Gynecology | CPT/HCPCS: 59025; 99213 ==

== ENCOUNTER 2024-04-20 12:32 | Outpatient (CLI) | payer OTHER ==
[2024-04-20 18:38] VITALS: BP 131/82; PULSE 96; RESP 18; TEMP 97.2
--- NOTE | 2024-05-09 09:09 | P.MSEPDOC ---
Presenting Problems - Arrival Data Date of Arrival on Unit: 04/20/24 Time of Arrival on Unit: 12:30 Mode of Transport: Ambulatory - Complaint OB-Reason for Admission/Chief Complaint: Other Comment: Pt states she feels as if her blood pressure is elevated but she has not taken it at home Medical History - Information : 3 Para: 1 Term: 1 : 0 Abortions: Spontaneous or Elective: 1 Number of Living Children: 1 - Gestational Age Gestational Age by NICHO (wks/days): 35 Weeks and 4 Days Review of Systems - Review of Systems Constitutional: No problems Breast: No problems ENT: No problems Cardiovascular: No problems Respiratory: No problems Gastrointestinal: No problems Genitourinary: No problems Musculoskeletal: No problems Neurological: No problems Skin: No problems Vital Signs - Temperature Temperature: 97.2 F Temperature Source: Temporal Artery Scan - Pulse Right Brachial Pulse Rate: 96 Pulse Assessment Method: Automatic Cuff - Respirations Respiratory Rate: 18 Oxygen Delivery Method: Room Air O2 Sat by Pulse Oximetry: 97 - Blood Pressure Right Arm Blood Pressure: 131/82 Blood Pressure Mean: 98 Blood Pressure Source: Automatic Cuff Medical Screen Scoring - Uterine Contractions Intensity: Absent Resting: Soft to palpation - Assessment - Baby A Baseline FHR: 135 Heart Rate - NICHD Category: Category I (Normal) NST: Reactive Physician Notification - Physician Notified Physician Notified Date: 04/20/24 Physician Notified Time: 12:50 Physician: Daniel Webb Order Received: Yes Maternal Triage Index - Maternal Triage Index Presenting for scheduled procedure w/no complaint: No - Stat/Priority 1 Stat Priority 1: No - Urgent/Priority 2 Urgent Priority 2: No - Prompt/Priority 3 Prompt Priority 3: No - Non-Urgent/Priority 4 Non-Urgent Priority 4: Yes Criteria Met for Priority 4: Pt here for BP checks. Dr Arias was called just after patient arrived for orders. States to take 2 more blood pressures and if WNL, patient may go home. Disposition - Disposition OB Disposition: Discharge to home Discharge Date: 04/20/24 Discharge Time: 13:25 I agree with the RN Medical Screening Exam: Yes Physician's MSE Comment: I have neither seen nor examined the patient. Case reviewed; plan agreed upon as documented in EMR&OBIX.: Yes Diagnosis: RELATED CONDITIONS, UNSPECIFIED, THIRD TRIMESTER
== END 2024-04-20 13:25 | disposition home or self-care (01) ==
LOC: FBPOP 12:32
PROVIDERS: ATTEND Obstetrics & Gynecology
CPT/HCPCS: 59025; 99213

== ENCOUNTER 2024-04-25 13:18 | Outpatient (CLI) | payer OTHER ==
[2024-04-25 17:18] VITALS: BP 129/84; PULSE 92; RESP 17; TEMP 99.3
--- NOTE | 2024-06-12 10:24 | P.MSEPDOC ---
Presenting Problems - Arrival Data Date of Arrival on Unit: 04/25/24 Time of Arrival on Unit: 13:18 Mode of Transport: Ambulatory - Complaint OB-Reason for Admission/Chief Complaint: Possible Onset of Labor Comment: pt presents to triage with c/p lower back pain and pelvic pressure, Medical History - Information : 3 Para: 1 Term: 1 : 0 Abortions: Spontaneous or Elective: 1 Number of Living Children: 1 - Gestational Age Gestational Age by NICHO (wks/days): 36 Weeks and 2 Days Review of Systems - Review of Systems Constitutional: No problems Breast: No problems ENT: No problems Cardiovascular: No problems Respiratory: No problems Gastrointestinal: No problems Genitourinary: No problems Musculoskeletal: No problems Neurological: No problems Skin: No problems Vital Signs - Temperature Temperature: 99.3 F Temperature Source: Temporal Artery Scan - Pulse Right Brachial Pulse Rate: 92 - Respirations Respiratory Rate: 17 Oxygen Delivery Method: Room Air - Blood Pressure Right Arm Blood Pressure: 129/84 Blood Pressure Mean: 99 Blood Pressure Source: Automatic Cuff Medical Screen Scoring - Cervical Exam Dilation (cm): 1.5 Effacement (%): 50 Station: -3 Membranes: Intact - Uterine Contractions Resting: Soft to palpation - Assessment - Baby A Baseline FHR: 140 Heart Rate - NICHD Category: Category I (Normal) NST: Reactive Physician Notification - Physician Notified Physician Notified Date: 04/25/24 Physician Notified Time: 15:00 Physician: Aneta Franz New Order Received: Yes - Notification Comment Comment: reactive nst, no cervical ticket dispenser changer an hour, no ctx's noted on monitor, abd soft to palpation, pt has appt on Sun in the office with Dr. Franz Maternal Triage Index - Maternal Triage Index Presenting for scheduled procedure w/no complaint: No - Stat/Priority 1 Stat Priority 1: No - Urgent/Priority 2 Urgent Priority 2: Yes Provider Notified: Aneta Franz Provider Notified Time: 14:25 Criteria Met for Priority 2: pt presents to triage with c/p lower back pain and pelvic pressure, Disposition - Disposition OB Disposition: Triage, Discharge to home, Written follow up instructions reviewed Discharge Date: 04/25/24 Discharge Time: 15:20 I agree with the RN Medical Screening Exam: Yes Case reviewed; plan agreed upon as documented in EMR&OBIX.: Yes Diagnosis: FALSE LABOR BEFORE 37 COMPLETED WEEKS OF GEST, THIRD TRI
== END 2024-04-25 15:20 | disposition home or self-care (01) ==
LOC: FBPOP 13:18
PROVIDERS: ATTEND Obstetrics & Gynecology Obstetrics
CPT/HCPCS: 59025; 99213

== ENCOUNTER 2024-05-01 06:05 | Inpatient (IN) | payer OTHER ==
[2024-05-01] MEDS ORDERED: TRANEXAMIC 1,000 MG/100ML-NACL 1,000 MG in EMPTY BAG 1 BAG IV PRN (06:19)
[2024-05-01] MEDS ORDERED: LIDOCAINE 0.5% (PF) 5 MG/ML (50 ML SDV) SQ PRN (06:19)
[2024-05-01] MEDS ORDERED: OXYTOCIN 10 UNIT/ML 1 ML VIAL IM PRN (06:19)
[2024-05-01] MEDS ORDERED: METHYLERGONOVINE 0.2 MG/ML 1 ML AMP IM PRN (06:19)
[2024-05-01] MEDS ORDERED: TERBUTALINE 1 MG/ML VIAL SQ PRN (06:19)
[2024-05-01] MEDS ORDERED: miSOPROStoL 200 MCG TAB PO PRN (06:19)
[2024-05-01] MEDS ORDERED: miSOPROStoL 200 MCG TAB RECTAL PRN (06:19)
[2024-05-01] MEDS ORDERED: CARBOPROST TROMETHAMINE 250 MCG/ML 1 ML AMP IM PRN (06:19)
[2024-05-01] MEDS: LACTATED RINGERS 1,000 ML IV SCH (06:28)
[2024-05-01] MEDS: OXYTOCIN 30 UNITS/500 ML NS 30 UNIT in SALINE 1 500ML.BAG IV SCH (06:29)
[2024-05-01 06:45] LABS: Basophils % (A) 0 %; Eosinophils # (A) 0.1 k/uL (0-0.7); Eosinophils % (A) 1 %; HCT 31.9 % (34.0-46.0); HGB 10.8 gm/dL (11.4-16.0); Hypochromasia Slight; Lymphocytes # (A) 1.7 k/uL (1.0-4.8); Lymphocytes % (A) 25 %; MCH 29.9 pg (25.0-35.0); MCHC 33.8 g/dL (31.0-37.0); MCV 88.3 fL (80.0-100.0); Mean Platelet Volume 8.6; Monocytes # (A) 0.3 k/uL (0-1.0); Monocytes % (A) 5 %; Neutrophils # (A) 4.5 k/uL (1.3-7.7); Neutrophils % (A) 67 %; Platelet Count 179 k/uL (150-450); Poikilocytosis Slight; RBC 3.61 m/uL (3.80-5.40); RDW 13.9 % (11.5-15.5); WBC 6.7 k/uL (3.8-10.6)
[2024-05-01] MEDS ORDERED: ROPIVACAINE 5 MG/ML 30 ML VIAL ONE (10:53)
[2024-05-01] MEDS ORDERED: SODIUM CHLORIDE 0.9% 250 ML BAG ONE (10:53)
[2024-05-01] MEDS ORDERED: fentaNYL (PF) 50 MCG/ML 5 ML AMP ONE (10:53)
--- NOTE | 2024-05-01 17:41 | P.PROBDLV ---
Vaginal Delivery Note - . Vaginal Delivery Note: 3-year-old G2, P1 at 37 and 1 sevenths weeks presents to labor and delivery for induction of labor secondary to gestational hypertension and severe maternal discomfort, worsening depression symptoms. Patient is admitted and Pitocin induction of labor has begun. Patient underwent amniotomy and clear fluid was obtained. Patient progressed through labor eventually becoming uncomfortable and requesting epidural. Epidural was placed without difficulty by the anesthes ia department. Patient made slow progress to complete dilation. Once completely dilated she began pushing and had a normal spontaneous vaginal delivery of a viable female at 1713, weight is pending. After 2-minute delay the umbilical cord was doubly clamped and cut and the symptoms delivered spontaneously intact with a three-vessel cord being noted. Uterus was noted to be firm below the umbilicus. On inspection the patient's vaginal vault no lacerations were appreciated. All counts were to be correct x 2. Estimated blood loss 100 cc. Patient and tolerated delivery well and are resting comfortably.
[2024-05-01] MEDS ORDERED: SIMETHICONE 80 MG CHEWABLE PO PRN (17:42)
[2024-05-01] MEDS ORDERED: BENZOCAINE/MENTHOL SPRAY 1 GM/SPRAY AEROSOL TOPICAL PRN (17:42)
[2024-05-01] MEDS ORDERED: LANOLIN CREAM 1 GM TUBE TOPICAL PRN (17:42)
[2024-05-01] MEDS ORDERED: HYDROCORTISONE 2.5% RECTAL CREAM 30 GM TUBE RECTAL PRN (17:42)
[2024-05-01] MEDS ORDERED: diphenhydrAMINE 25 MG CAP PO PRN (17:42)
[2024-05-01] MEDS ORDERED: ZOLPIDEM 5 MG TAB PO PRN (17:42)
[2024-05-01] MEDS ORDERED: diphenhydrAMINE 50 MG/ML 1 ML VIAL IVP PRN ×2 (17:42)
[2024-05-01] MEDS ORDERED: diphenhydrAMINE 50 MG CAP PO PRN (17:42)
--- NOTE | 2024-05-01 17:42 | P.HPOB ---
History of Present Illness H&P Date: 05/01/24 Chief Complaint: IUP @ 37 1/7 weeks, gestational htn 23 yo at 37 1/7 weeks that presents to labor and delivery for induction of labor. She has been receiving routine care that has been complicated by increasing depression and gestational htn. she had noted elevated BPs through the and has had multiple work up for pre e. She continues to struggle with HERNANDEZ and dizziness at home and BP 140's/90's. she has been undergoing week NST for these sx as well. she has a h/o depression and is currently on zoloft 100mg, she states she typically takes 200mg but her physician wont increase until she delivers. she is very tearful and struggling with discomfort. she notes increasing pelvic pressure and sciatica pain. she is increasing uncomfortable and is unable to do any daily activities due to pain. Review of Systems Constitutional: Denies chills, Denies fatigue, Denies fever Ears, nose, mouth and throat: Reports headache Cardiovascular: Reports leg edema Respiratory: Denies dyspnea Gastrointestinal: Denies nausea, Denies vomiting Genitourinary: Reports Past Medical History Past Medical History: No Reported History History of Any Multi-Drug Resistant Organisms: MRSA Date of last positivie culture/infection: 06/29/21 MDRO Source:: MRSA right GROIN Past Surgical History: Ear Surgery Additional Past Surgical History / Comment(s): Tubes in her ears. Past Anesthesia/Blood Transfusion Reactions: No Reported Reaction Past Psychological History: Anxiety, Depression Smoking Status: Never smoker Past Alcohol Use History: None Reported Past Drug Use History: None Reported - Past Family History Mother Family Medical History: No Reported History Medications and Allergies Home Medications Medication Instructions Recorded Confirmed Type Sertraline [Zoloft] 100 mg PO DAILY 11/22/23 05/01/24 History Aspirin 81 mg PO DAILY 03/05/24 05/01/24 History Fexofenadine HCl [Whit Allergy] 60 mg PO DAILY 03/05/24 05/01/24 History Allergies Allergy/AdvReac Type Severity Reaction Status Date / Time amoxicillin Allergy Rash/Hives Verified 05/01/24 06:18 Exam Osteopathic Statement: *. No significant issues noted on an osteopathic structural exam other than those noted in the History and Physical/Consult. Vital Signs Temp Pulse Resp BP Pulse Ox 05/01/24 06:17 97.6 F 75 16 122/84 100 Intake and Output 04/30/24 05/01/24 05/01/24 22:59 06:59 14:59 Other: Weight 93.894 kg targeted physical exam is done on this date, in general this is a well nourished well developed female in no acute distress, breathing is noted non labored, uterus is gravid and appropriate for GA, FHTs cat 1 irregular ctx, on cervical exam she is 350/-3 amniotomy is preformed with clear fluid noted. Results Result Diagrams: 05/01/24 06:20 Abnormal Lab Results - Last 24 Hours (Table) 05/01/24 Range/Units 06:20 RBC 3.61 L (3.80-5.40) m/uL Hgb 10.8 L (11.4-16.0) gm/dL Hct 31.9 L (34.0-46.0) % Assessment and Plan (1) 37 or more weeks gestation of Current Visit: Yes Status: Acute Code(s): HNS3998 - SNOMED Code(s): 34215639 (2) Maternal distress Current Visit: Yes Status: Acute Code(s): O75.0 - MATERNAL DISTRESS DURING LABOR AND DELIVERY SNOMED Code(s): 19334208 (3) Gestational HTN Current Visit: No Status: Acute Code(s): O13.9 - GESTATIONAL HTN W/O SIGNIFICANT PROTEINURIA, UNSP TRIMESTER SNOMED Code(s): 08349023 Plan: 23yo that presents to labor and delivery at 37 1/7 weeks for induction of labor. she is admitted and pitocin induction is begun per [facility] protocol. she does desires an epidural for pain control and anesthesia vanesa be notified.
[2024-05-01] MEDS: IBUPROFEN 600 MG TAB PO SCH (22:31)
[2024-05-01] MEDS: SENNOSIDES-DOCUSATE SODIUM 1 EACH TAB PO SCH (23:42)
[2024-05-02 04:57] LABS: Basophils % (A) 0 %; Eosinophils # (A) 0.1 k/uL (0-0.7); Eosinophils % (A) 1 %; HCT 30.8 % (34.0-46.0); HGB 10.3 gm/dL (11.4-16.0); Hypochromasia Slight; Lymphocytes # (A) 1.9 k/uL (1.0-4.8); Lymphocytes % (A) 21 %; MCH 29.7 pg (25.0-35.0); MCHC 33.3 g/dL (31.0-37.0); MCV 89.1 fL (80.0-100.0); Mean Platelet Volume 8.9; Monocytes # (A) 0.5 k/uL (0-1.0); Monocytes % (A) 5 %; Neutrophils # (A) 6.5 k/uL (1.3-7.7); Neutrophils % (A) 72 %; Platelet Count 138 k/uL (150-450); Poikilocytosis Slight; RBC 3.46 m/uL (3.80-5.40)
[2024-05-02] MEDS: ACETAMINOPHEN TAB 325 MG TAB PO PRN (08:42)
--- NOTE | 2024-05-02 09:28 | P.PNOBGVD ---
Subjective - Subjective Principal diagnosis: day #1 status postnormal spontaneous vaginal delivery Interval history: Patient is doing well . She is ambulating and voiding without difficulty. He states her pain is well-controlled with oral pain medication. Baby is doing well and is at the bedside. She is breast-feeding without difficulty. Lochia is noted to be minimal to moderate Patient reports: Reports appetite normal, Reports voiding normally, Reports pain well controlled, Reports ambulating normally : doing well, nursing well Objective - Latest Vital Signs Latest vital signs: Vital Signs Temp Pulse Resp BP Pulse Ox 05/02/24 08:00 97.9 F 69 18 130/84 05/02/24 04:00 98.0 F 61 17 111/74 96 05/02/24 00:00 98.1 F 80 18 129/78 98 05/01/24 19:45 81 18 129/71 05/01/24 19:30 93 18 143/68 05/01/24 19:15 88 18 114/65 05/01/24 19:00 91 16 128/67 05/01/24 18:45 96 16 127/60 05/01/24 18:30 97 16 133/77 05/01/24 18:15 85 16 137/80 05/01/24 18:00 76 16 142/65 05/01/24 17:45 88 16 123/56 05/01/24 17:30 97.0 F L 92 16 133/77 Intake and Output 05/01/24 05/02/24 05/02/24 22:59 06:59 14:59 Output Total 1089 Balance -1089 Output: Urine 1000 Output, Quantitative 89 Blood Loss Other: # Voids 1 - Exam Extremities: Present: normal, edema Abdomen: Present: normal appearance, soft Uterus: Present: normal, firm - Labs Labs: Abnormal Lab Results - Last 24 Hours (Table) 05/02/24 Range/Units 04:38 RBC 3.46 L (3.80-5.40) m/uL Hgb 10.3 L (11.4-16.0) gm/dL Hct 30.8 L (34.0-46.0) % Plt Count 138 L (150-450) k/uL Assessment and Plan (1) 37 or more weeks gestation of Current Visit: Yes Status: Acute Code(s): [id number] - SNOMED Code(s): 61246592 (2) Maternal distress Current Visit: Yes Status: Acute Code(s): O75.0 - MATERNAL DISTRESS DURING LABOR AND DELIVERY SNOMED Code(s): 40884531 (3) Gestational HTN Current Visit: No Status: Acute Code(s): O13.9 - GESTATIONAL HTN W/O SIGNIFICANT PROTEINURIA, UNSP TRIMESTER SNOMED Code(s): 47205941 (4) Status post vaginal delivery Current Visit: No Status: Acute Code(s): MWG5490 - SNOMED Code(s): 460729503 Plan: Patient is doing well . Will plan to continue routine care and discharge home tomorrow.
[2024-05-03 07:58] VITALS: BP 125/80; PULSE 82; RESP 16; TEMP 97.5
--- NOTE | 2024-05-03 11:46 | P.DS ---
Providers Date of admission: 05/01/24 06:05 Expected date of discharge: 05/03/24 Attending physician: Aneta Frazn Primary care physician: Stated None - Discharge Diagnosis(es) (1) 37 or more weeks gestation of Current Visit: Yes Status: Acute (2) Maternal distress Current Visit: Yes Status: Acute (3) Gestational HTN Current Visit: No Status: Acute (4) Status post vaginal delivery Current Visit: No Status: Acute Hospital Course: 23-year-old 3 para 1-0-1-1 that presented to labor and delivery at 37 and 1 sevenths weeks for induction of labor. Patient has had a lengthy complicated by sciatica, increased pelvic pressure, gestational hypertension. Patient had a history of gestational hypertension with her last . Patient has had noted blood pressures at home 140s over 90s. Patient continues to complain of headache and dizziness in addition. Patient has a significant history of depression and is currently taking Zoloft 100 mg daily, she states her typical dose is 200 but her physician has limited her to 100 mg during the . Patient was admitted to labor and delivery and Pitocin induction of labor was begun. Patient underwent amniotomy and clear fluid was obtained. Patient became uncomfortable and requested epidural placement. Patient progressed to complete began pushing and had a normal spontaneous vaginal delivery at 1713, weight of 7 pounds 2.5 ounces, no vaginal lacerations were appreciated during delivery. Patient's course has been essentially uneventful. On this day #2 she is noted to be tearful, she states that she has not taken her Zoloft in 2 days though. Patient is counseled on need for Zoloft daily and I will write a prescription for her normal dose of 200 mg daily. She states her pain is well-controlled. She is ambulating and voiding without difficulty. She is tolerating a regular diet. Patient Condition at Discharge: Good Plan - Discharge Summary New Discharge Prescriptions: No Action Sertraline [Zoloft] 100 mg PO DAILY Aspirin 81 mg PO DAILY Fexofenadine HCl [Whit Allergy] 60 mg PO DAILY Discharge Medication List Sertraline [Zoloft] 100 mg PO DAILY 11/22/23 [History] Aspirin 81 mg PO DAILY 03/05/24 [History] Fexofenadine HCl [Whit Allergy] 60 mg PO DAILY 03/05/24 [History] Follow up Appointment(s)/Referral(s): Aneta Franz DO [Doctor of Osteopathic Medicine] - 2 Weeks Patient Instructions/Handouts: Vaginal Delivery (GEN), Vaginal Delivery (DC) Activity/Diet/Wound Care/Special Instructions: No tub baths or intercourse until 6 weeks . Patient is to call the office and make a visit for 2 weeks given her increase in depression symptoms. Prescription for Zoloft 200 mg is given to patient in addition. Re ent is encouraged to go back on her Zoloft 100 mg and titrate to 200 mg. Discharge Disposition: HOME SELF-CARE
== END 2024-05-03 13:05 | disposition home or self-care (01) | DRG 807 ==
LOC: 4FBP 06:05
PROVIDERS: ADMIT Obstetrics & Gynecology Obstetrics; ATTEND Obstetrics & Gynecology Obstetrics
PROC: 10E0XZZ Delivery of Products of Conception, External Approach (ICD-10-PCS; principal; 2024-05-01)
PROC: 3E033VJ Introduction of Other Hormone into Peripheral Vein, Percutaneous Approach (ICD-10-PCS; 2024-05-01)
PROC: 10907ZC Drainage of Amniotic Fluid, Therapeutic from Products of Conception, Via Natural or Artificial Opening (ICD-10-PCS; 2024-05-01)
DX: O13.4 Gestational [pregnancy-induced] hypertension without significant proteinuria, complicating childbirth (principal); Z37.0 Single live birth; O99.344 Other mental disorders complicating childbirth; F32.A Depression, unspecified; F41.9 Anxiety disorder, unspecified; O75.89 Other specified complications of labor and delivery; M54.30 Sciatica, unspecified side; Z3A.37 37 weeks gestation of pregnancy; Z79.82 Long term (current) use of aspirin; Z79.899 Other long term (current) drug therapy